=== PATIENT | female | born 1935 | race Caucasian/White ===

== ENCOUNTER → 2020-11-20 | Outpatient (CLI) | payer MEDICARE, OTHER ==
[~2020-11-20] MED LIST: CATAPRES 0.1MG0.1 MG PO
== END ==
LOC: HEART 5 14:02
DX: R06.02 Shortness of breath (principal); R09.02 Hypoxemia; R94.2 Abnormal results of pulmonary function studies; F17.210 Nicotine dependence, cigarettes, uncomplicated
CPT/HCPCS: 94010; 94729

== ENCOUNTER → 2021-01-01 | Outpatient (CLI) | payer MEDICARE, OTHER | LOC: KOH-I 15:00 | DX: J41.0 Simple chronic bronchitis (principal); J43.8 Other emphysema; R10.816 Epigastric abdominal tenderness; R11.0 Nausea; R05 Cough; K76.0 Fatty (change of) liver, not elsewhere classified; K80.20 Calculus of gallbladder without cholecystitis without obstruction; N28.89 Other specified disorders of kidney and ureter; R16.1 Splenomegaly, not elsewhere classified | CPT/HCPCS: 74176 ==

== ENCOUNTER → 2021-01-22 | Outpatient (CLI) | payer MEDICARE, OTHER | LOC: KOH-I 13:59 | DX: J43.8 Other emphysema (principal); R06.02 Shortness of breath; R91.1 Solitary pulmonary nodule | CPT/HCPCS: 71250 ==

== ENCOUNTER → 2021-02-17 | Outpatient (CLI) | payer MEDICARE, OTHER | LOC: MAMO 13:00 | DX: Z12.31 Encounter for screening mammogram for malignant neoplasm of breast (principal); Z79.899 Other long term (current) drug therapy | CPT/HCPCS: 77063; 77067 ==

== ENCOUNTER → 2021-03-13 | Outpatient (CLI) | payer MEDICARE, OTHER | LOC: ECHO 11:31 | DX: R06.02 Shortness of breath (principal); I07.1 Rheumatic tricuspid insufficiency | CPT/HCPCS: ECHO; 93306 ==

== ENCOUNTER → 2021-10-01 | Outpatient (CLI) | payer MEDICARE, OTHER | LOC: KOH-I 15:16 | DX: M79.672 Pain in left foot (principal); M25.542 Pain in joints of left hand; M19.032 Primary osteoarthritis, left wrist; M19.042 Primary osteoarthritis, left hand; M19.072 Primary osteoarthritis, left ankle and foot | CPT/HCPCS: 73110; 73130; 73630 ==

== ENCOUNTER 2021-10-19 20:18 | Emergency (ER) | payer MEDICARE, OTHER ==
[2021-10-19 21:47] LABS: RED BLOOD COUNT 4.57 M/UL (4.00-5.10); WHITE BLOOD COUNT 5.1 K/UL (4.5-11.0)
[2021-10-19 22:20] LABS: BUN/CREATININE RATIO 14 (0-10)
== END 2021-10-20 02:16 | disposition home or self-care (01) ==
LOC: ER1 20:18
PROVIDERS: Physician Assistant
DX: I12.9 Hypertensive chronic kidney disease with stage 1 through stage 4 chronic kidney disease, or unspecified chronic kidney disease (principal); J44.9 Chronic obstructive pulmonary disease, unspecified; N18.30 Chronic kidney disease, stage 3 unspecified; R51.9 Headache, unspecified; R06.02 Shortness of breath
CPT/HCPCS: 70450; 71045; 80053; 81001; 82550; 82553; 83874; 84484; 85025; 93005; 99285

== ENCOUNTER 2021-12-23 22:16 | Emergency (ER) | payer MEDICARE, OTHER ==
[2021-12-23 23:21] LABS: HEMOGLOBIN 13.8 gm/dl (12.3-15.3); RED BLOOD COUNT 4.54 M/UL (4.00-5.10); WHITE BLOOD COUNT 5.7 K/UL (4.5-11.0)
[2021-12-24 00:03] LABS: BUN/CREATININE RATIO 22 (0-10)
== END 2021-12-24 05:12 | disposition home or self-care (01) ==
LOC: ER1 22:16
PROVIDERS: Physician Assistant
DX: R51.9 Headache, unspecified (principal); J45.909 Unspecified asthma, uncomplicated; I10 Essential (primary) hypertension; Z88.5 Allergy status to narcotic agent
CPT/HCPCS: 70450; 71045; 80053; 82550; 82553; 83874; 83880; 84484; 85025; 93005; 99284

== ENCOUNTER → 2022-05-27 | Outpatient (CLI) | payer MEDICARE, OTHER | LOC: KOH-I 14:47 | DX: M13.862 Other specified arthritis, left knee (principal); R60.0 Localized edema | CPT/HCPCS: 73562; 73630 ==

== ENCOUNTER → 2022-08-17 | Outpatient (CLI) | payer MEDICARE, OTHER | LOC: EMI 13:00 | DX: M25.562 Pain in left knee (principal); M17.12 Unilateral primary osteoarthritis, left knee; M71.22 Synovial cyst of popliteal space [Baker], left knee | CPT/HCPCS: 73721 ==